=== PATIENT | male | born 1985 | race Hispanic/Latino ===

== ENCOUNTER 2017-07-23 20:41 | Inpatient (IN) | payer MEDICAID, OTHER, SELFPAY ==
[~2017-07-23] VITALS: Ht 167.6 cm; Wt 157.0 kg
[2017-07-23] MEDS ORDERED: SYMB16INH INH (21:01)
[2017-07-23] MEDS ORDERED: ALBU17IN INH (21:01)
[2017-07-23] MEDS ORDERED: NS 1,000 ML IV ONE (21:15)
[2017-07-23 21:17] LABS: BASO # 0.1 10^3/uL (0.0-0.2); BASO % 0.6 % (0.0-1.0); EOS # 0.2 10^3/uL (0.0-0.50); EOS % 2.2 % (0.0-3.0); IMMATURE GRANULOCYTE % 0.1 % (0-0); LYMPH # 2.9 10^3/uL (1.5-4.5); LYMPH % 34.1 % (24.0-44.0); MEAN CORPUSCULAR HEMOGLOBIN 28.8 pg (27.0-33.0); MEAN CORPUSCULAR VOLUME 82.4 fl (80.0-96.0); MONO # 0.6 10^3/uL (0.0-0.8); MONO % 7.2 % (0.0-5.0); NEUTROPHILS # 4.8 10^3/uL (1.8-7.7); NEUTROPHILS % 55.8 % (36.0-66.0); PLATELET COUNT, AUTOMATED 383 10^3/uL (150-450); RED CELL DISTRIBUTION WIDTH 13.2 % (11.5-14.5); WHITE BLOOD COUNT 8.6 10^3/uL (4.0-10.0)
[2017-07-23 21:37] LABS: OSMOLALITY SERUM 305 MOSM/KG (275-295)
[2017-07-23 21:39] LABS: ALBUMIN 3.7 GM/DL (3.2-5.2); ALBUMIN/GLOBULIN RATIO 1.03 (1.00-1.93); ALKALINE PHOSPHATASE 73 U/L (45-117); ALT/SGPT 91 U/L (12-78); ANION GAP 9 MEQ/L (8-16); AST/SGOT 27 U/L (15-37); BILIRUBIN,DIRECT < 0.1 MG/DL (0.0-0.2); BILIRUBIN,TOTAL 0.2 MG/DL (0.2-1.0); BLOOD UREA NITROGEN 23 MG/DL (7-18); CALCIUM LEVEL 8.5 MG/DL (8.5-10.1); CARBON DIOXIDE LEVEL 23 MEQ/L (21-32); CHLORIDE LEVEL 108 MEQ/L (98-107); CREATININE FOR GFR 0.88 MG/DL (0.70-1.30); GLOMERULAR FILTRATION RATE > 60.0 (>60); GLUCOSE, FASTING 130 MG/DL (70-105); SODIUM LEVEL 140 MEQ/L (136-145); TOTAL PROTEIN 7.3 GM/DL (6.4-8.2)
[2017-07-23 21:47] LABS: ERYTHROCYTE SEDIMENTATION RATE 10 mm/hr (0-15)
[2017-07-23 21:52] LABS: METHADONE URINE NEGATIVE (NEGATIVE)
[2017-07-23] MEDS ORDERED: D5W IV ONE ×2 (22:00→23:00)
[2017-07-23] MEDS ORDERED: ACETYLCYSTEINE IV ONE ×2 (22:00→23:00)
[2017-07-23] MEDS ORDERED: NS 1,000 ML IV SCH (22:30)
[2017-07-23 22:32] LABS: VENOUS BASE EXCESS -0.5 (-2.0-2.0); VENOUS O2 SATURATION 69.5 % (60.0-80.0); VENOUS PARTIAL PRESSURE O2 37.3 mmHg (30.0-50.0); VENOUS STANDARD HCO3 23.4 MEQ/L; VENOUS TOTAL CO2 27.1 MEQ/L (24.0-28.0)
[2017-07-23 22:34] LABS: T UPTAKE 41 % (33-40); THYROXINE (T4) 15.5 UG/DL (4.5-12.0)
[2017-07-23 22:44] LABS: INR 0.98
[2017-07-23] MEDS ORDERED: ONDANSETRON 4MG/2ML VIAL (J2405) IV ONE (23:45)
[2017-07-24 02:17] LABS: ALBUMIN 3.1 GM/DL (3.2-5.2); ALBUMIN/GLOBULIN RATIO 0.86 (1.00-1.93); ALKALINE PHOSPHATASE 58 U/L (45-117); ALT/SGPT 72 U/L (12-78); AST/SGOT 19 U/L (15-37); BILIRUBIN,DIRECT < 0.1 MG/DL (0.0-0.2); BILIRUBIN,TOTAL 0.3 MG/DL (0.2-1.0); TOTAL PROTEIN 6.7 GM/DL (6.4-8.2)
--- NOTE | 2017-07-24 02:21 | HPEPDOC ---
General Date of Admission 07-23-17 Primary Care Physician: ADITI MUÑOZ MD Chief Complaint The patient is a 32-year-old male admitted with a reason for visit of Ibuprofen Od. Source: Patient Exam Limitations: No limitations Timing/Duration: 4-6 hours Severity: Moderate Associated Symptoms: Weakness History of Present Illness 32 y/o male with past medical history of asthma presents to ED after taking too many tylenol pills. Pt states that he has had a persistent tooth ache on the right side with radiation down the back of his neck and up the right side of his face for many months, the pain is intermittent but apparently today in the afternoon around 1 pm it became very severe and the pt states he just "kept taking more tylenol to dull the pain". He states that about 4-5 hours later he had ingested at least one bottle full of tylenol according to pt. he was in the shower and noticed that his mouth felt strange and when he tried to speak his words were slurred, he noted headache and some blurring vision and a rapid heart rate with associated SOB and nausea. The pt. then got in his car and dove to his MIL's home who suggested to come to the ED. The pt states he was in good health before today, denied any issues with urination or defecation nor fever, chills or muscle aches. His only medical condition is asthma which is controlled with hand held inhalers. He does admit that him and his are and he did get fired from his job recently but states he did not take the pills to kill himself nor does he have a plans or a means to do so (no guns in the home), he denies wanting to harm anyone else and stated "I only took the pills because the pain was so bad,thats all". He did state that his dentist wants him to have a root canal but that because of insurance reasons he cannot get this done yet. Denies ever having an overdose of medicine in the past. He states that he currently feels well. Home Medications Scheduled Budesonide/Formoterol (Symbicort 160-4.5 Mcg/Act) 60 Puff/Inhaler Aers, 2 PUFF INH BID, (Reported) Scheduled PRN Albuterol Sulfate (Ventolin Hfa) 200 Puff/8 Gm Aers, 2 PUFF INH Q4HP PRN for SHORTNESS OF BREATH, (Reported) Allergies Coded Allergies: No Known Allergies (Unverified , 07/23/17) Past Medical History Medical History asthma Surgical History vasectomy Family History Significant Family History: No pertinent family hx Social History * Smoker: Denies Alcohol: rarely Drugs: denies lives at home by himself Review of Symptoms Constitutional: Reports: Malaise, Denies: Chills, Fever, Night Sweats, Weakness, Fatigue Eyes: Reports: Vision change, Denies: Pain, Conjunctivae inflammation ENT: Reports: Head Aches, Denies: Ear Pain Skin: Denies: Rash, Lesions, Jaundice, Bruising Pulmonary: Reports: Dyspnea, Denies: Cough, Pleuritic Chest Pain Cardiovascular: Reports: Palpitations, Denies: Chest Pain, Orthopnea, Edema, Lt Headedness Gastrointestinal: Reports: Nausea, Denies: Vomiting, Abdominal Pain, Diarrhea, Constipation, Melena, Hematochezia Genitourinary: Denies: Dysuria Musculoskeletal: Denies: Neck Pain Neurological: Denies: Weakness Psych: Reports: Mood Normal Physical Examination General Exam: Positive: Alert, Cooperative, No Acute Distress Eye Exam: Positive: PERRLA, Conjunctiva & lids normal, EOMI, Negative: Sclera icteric, Ptosis ENT Exam: Positive: Atraumatic, Mucous membr. moist/pink, Pharynx Normal Neck Exam: Positive: Supple, Negative: JVD, thyromegaly Chest Exam: Positive: Clear to auscultation, Normal air movement, Negative: Rales, Rhonchi, Wheezing, Diminished Heart Exam: Positive: Rate Normal, Normal S1, Normal S2, Negative: Tachycardic, Bradycardic, Murmurs, Rubs Telemetry: Positive: No significant arrhythmia Abdomen Exam: Positive: Normal bowel sounds, Soft, Negative: Tenderness, Hepatospenomegaly Extremity Exam: Positive: Normal pulses, Negative: Clubbing, Cyanosis, Edema, Tenderness, Swelling Skin Exam: Negative: Rash, Breakdown Neuro Exam: Positive: Normal Speech, Sensation Intact Psych Exam: Positive: Mental status NL, Oriented x 3 Vital Signs Vital Signs Date Time Temp Pulse Resp B/P (MAP) Pulse Ox O2 Delivery O2 Flow Rate FiO2 07/23/17 21:15 07/23/17 21:15 Room Air 07/23/17 21:02 99.1 95 18 99 Laboratory Data Labs 24H Laboratory Tests 2 07/23/17 20:56: Immature Granulocyte % (Auto) 0.1H, White Blood Count 8.6, Red Blood Count 5.27 , Hemoglobin 15.2, Hematocrit 43.4, Mean Corpuscular Volume 82.4, Mean Corpuscular Hemoglobin 28.8, Mean Corpuscular Hemoglobin Concent 35.0, Red Cell Distribution Width 13.2, Platelet Count 383, Neutrophils (%) (Auto) 55.8, Lymphocytes (%) (Auto) 34.1, Monocytes (%) (Auto) 7.2H, Eosinophils (%) (Auto) 2.2, Basophils (%) (Auto) 0.6, Neutrophils # (Auto) 4.8, Lymphocytes # (Auto) 2.9, Monocytes # (Auto) 0.6, Eosinophils # (Auto) 0.2, Basophils # (Auto) 0.1, Immature Granulocyte # (Auto) 0.0, Nucleated Red Blood Cells % (auto) 0.0, Erythrocyte Sedimentation Rate 10, Anion Gap 9, Glomerular Filtration Rate > 60.0, Osmolality 305H, Calcium Level 8.5, Aspartate Amino Transf (AST/SGOT) 27, Alanine Aminotransferase (ALT/SGPT) 91H, Alkaline Phosphatase 73, Total Bilirubin 0.2, Direct Bilirubin < 0.1, Total Creatine Kinase 112, C-Reactive Protein, Quantitative < 0.30, Total Protein 7.3, Albumin 3.7, Albumin/Globulin Ratio 1.03, Thyroid Stimulating Hormone (TSH) < 0.005L, Free Thyroxine Index 6.4H, Thyroxine (T4) 15.5H, Triiodothyronine (T3) Uptake 41H, Salicylates Level < 1.7L, Acetaminophen Level 42.3H, Ethyl Alcohol Level < 0.003 07/23/17 21:28: Urine Appearance CLEAR, Urine Color YELLOW, Urine pH 6.0, Urine Specific [place] 1.039, Urine Protein NEGATIVE, Urine Glucose (UA) NEGATIVE, Urine Ketones TRACEH, Urine Urobilinogen 2.0H, Urine Bilirubin NEGATIVE, Urine Leukocyte Esterase NEGATIVE, Urine Blood NEGATIVE, Urine Nitrite NEGATIVE, Urine WBC (Auto) 2, Urine RBC (Auto) 4H, Urine Hyaline Casts (Auto) 0, Urine Bacteria (Auto) NEGATIVE, Urine Squamous Epithelial Cells 0, Urine Mucus (Auto) SMALL, Urine Sperm (Auto) , Urine Amphetamines Screen NEGATIVE, Urine Benzodiazepines Screen NEGATIVE, Urine Opiates Screen NEGATIVE, Urine Methadone Screen NEGATIVE, Urine Barbiturates Screen NEGATIVE, Urine Phencyclidine Screen NEGATIVE, Urine Cocaine Metabolite Screen NEGATIVE, Urine Cannabinoids Screen NEGATIVE 07/23/17 22:21: Prothrombin Time 13.0, Prothromb Time International Ratio 0.98, Activated Partial Thromboplast Time 26.4L, Blood Gas Bicarbonate Standard 23.4, Venous Blood pH 7.346, Venous Blood Partial Pressure CO2 48.0, Venous Blood Partial Pressure O2 37.3, Venous Blood Total Carbon Dioxide 27.1, Venous Blood HCO3 25.7 , Venous Blood Oxygen Saturation 69.5, Venous Blood Base Excess -0.5, Lactic Acid Level 1.5 CBC/BMP Laboratory Tests 07/23/17 20:56 Red Blood Count 5.27, Mean Corpuscular Volume 82.4, Mean Corpuscular Hemoglobin 28.8, Mean Corpuscular Hemoglobin Concent 35.0, Red Cell Distribution Width 13.2 , Neutrophils (%) (Auto) 55.8, Lymphocytes (%) (Auto) 34.1, Monocytes (%) (Auto ) 7.2 H, Eosinophils (%) (Auto) 2.2, Basophils (%) (Auto) 0.6, Neutrophils # ( Auto) 4.8, Lymphocytes # (Auto) 2.9, Monocytes # (Auto) 0.6, Eosinophils # (Auto ) 0.2, Basophils # (Auto) 0.1 Problems (1) Overdose by acetaminophen Status: Acute Response to Treatment: Stable Problem Text: Pt. continue to receive n-acetyl cysteine as per protocol will be made NPO-will give fluids will be transferred to ICU suicide precautions continued psych. consult in AM, pt will need to be medically cleared before transfer to psych. services (2) Asthma Status: Acute Response to Treatment: Stable Problem Text: c/w home meds (3) Hyperthyroidism Response to Treatment: Stable Problem Text: pt would benefit from outpt f/u by endocrinology pt is not sx., is not tachycardic will continue to monitor (4) DVT prophylaxis Status: Acute Response to Treatment: Stable Problem Text: scd teds Plan / VTE VTE Prophylaxis Ordered?: Yes GME ATTESTATION GME ATTESTATION My preceptor for this patient encounter was physically present in the building during the encounter and was fully available. As needed, all aspects of the patient interview, examination, medical decision making process, and medical care plan development were reviewed and approved by the preceptor. Preceptor is aware and concurs with the plan as stated in the body of this note and will attest to such by his/her cosignature. CESAR LEGGETT DO Jul 24, 2017 00:56
[2017-07-24] MEDS: NS 1,000 ML IV SCH ×2 (02:45→13:50)
[2017-07-24] MEDS ORDERED: ALBUTEROL 90 MCG/ACT 8GM HFA INHALER INH PRN (02:45)
[2017-07-24] MEDS ORDERED: D5W IV ONE (03:00)
[2017-07-24] MEDS ORDERED: ACETYLCYSTEINE IV ONE (03:00)
[2017-07-24 04:00] VITALS: BP 142/68
[2017-07-24 04:59] LABS: BASO % 0.3 % (0.0-1.0); EOS % 0.4 % (0.0-3.0); IMMATURE GRANULOCYTE % 0.1 % (0-0); LYMPH # 2.5 10^3/uL (1.5-4.5); LYMPH % 25.6 % (24.0-44.0); MEAN CORPUSCULAR HEMOGLOBIN 28.7 pg (27.0-33.0); MEAN CORPUSCULAR HGB CONC 34.4 g/dl (32.0-36.5); MEAN CORPUSCULAR VOLUME 83.4 fl (80.0-96.0); MONO # 0.8 10^3/uL (0.0-0.8); MONO % 8.2 % (0.0-5.0); NEUTROPHILS # 6.4 10^3/uL (1.8-7.7); NEUTROPHILS % 65.4 % (36.0-66.0); PLATELET COUNT, AUTOMATED 329 10^3/uL (150-450); RED CELL DISTRIBUTION WIDTH 13.2 % (11.5-14.5); WHITE BLOOD COUNT 9.8 10^3/uL (4.0-10.0)
[2017-07-24 05:06] LABS: ANION GAP 8 MEQ/L (8-16); BLOOD UREA NITROGEN 19 MG/DL (7-18); CALCIUM LEVEL 8.7 MG/DL (8.5-10.1); CARBON DIOXIDE LEVEL 26 MEQ/L (21-32); CHLORIDE LEVEL 107 MEQ/L (98-107); CREATININE FOR GFR 0.74 MG/DL (0.70-1.30); GLOMERULAR FILTRATION RATE > 60.0 (>60); GLUCOSE, FASTING 122 MG/DL (70-105); POTASSIUM SERUM 3.7 MEQ/L (3.5-5.1); SODIUM LEVEL 141 MEQ/L (136-145)
[2017-07-24 07:00] VITALS: BP 141/65
[2017-07-24 08:00] VITALS: BP 141/71
[2017-07-24] MEDS ORDERED: SYMBICORT 160/4.5MCG INHALER 6GM INH SCH (09:00)
--- NOTE | 2017-07-24 11:42 | REP ---
REASON: Drug overdose. FINDINGS: The technique utilized in obtaining the radiograph has magnified the cardiac silhouette and accentuated the interstitial markings. The superior mediastinal structures are midline. The cardiac silhouette is unremarkable in size, shape, and position. The diaphragmatic surfaces of the lungs are regular, and the costophrenic angles are clear. The pulmonary pryor are clear. The imaged osseous structures are intact. IMPRESSION: There is no acute cardiopulmonary disease. Signed by Mendoza Minaya DO 07/24/2017 10:43 A
[2017-07-24 12:06] VITALS: BP 153/69
--- NOTE | 2017-07-24 12:43 | ECGEPIP ---
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
--- NOTE | 2017-07-24 13:41 | MHCRPDOC ---
[facility] Consultation Consultation DATE OF CONSULTATION: 07/24/17 CONSULTATION REQUESTED BY: TESSY GERARD REASON FOR CONSULTATION: . suspected suicidal attempt by overdose on acetaminophen/ibuprofen RELEVANT HISTORY: . Patient is a 32 years old male without known previous psychiatric history that was admitted after having an overdose of acetaminophen/ibuprofen. Patient has been with worsening toothache and gun pain for several weeks and unable to get a root canal/dental treatment as his insurance has not approved. Patient does not know how many pills took last night but was taking the pills constantly over several hours as his pain was not improving. Denied alcohol or any other drug use. Denied any symptoms of depression, anxiety, roxane/psychosis. He is currently living in his owned house by himself as his him about two months ago and moved two hours away. The communicate every day and they will go to couples therapy. They have two girls- ages 2,1. He was fired from his job in [employer] last week - but currently is considering two job offers and has savings in order to support himself until he gets a job. Denied history of any mental health treatments, no history of depression, no history of self harm behaviors Collateral from brother in law/sister's that are very close to him and he reported no previous statements of self harm behaviors, does not think he will be able to hurt himself. Patient has very good support system including 5 sisters, brother in law- Shalom and mother in law whom he speaks every day. His family is in [facility]. PAST PSYCHIATRIC HISTORY: none PAST MEDICAL HISTORY: none, however has recently dental/tooth ache FAMILY HISTORY: No history of mental illness in the family, no history of suicide PERSONAL AND SOCIAL HISTORY: Born and raised in [facility]. 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 SUBSTANCE ABUSE HISTORY: Denied LEGAL HISTORY: . none MENTAL STATUS EXAMINATION: Patient is a 32 years old male , looks stated age, fair grooming and hygiene Speech is fluent, coherent in Urdu Language skills are normal Thought processes including: linear, coherent, goal directed Thought content: no suicidal or homicidal ideas, no delusions elicited, no perceptual disturbances Abstract reasoning, and computation: intact Description of associations: none Description of abnormal or psychotic thoughts: no psychosis Judgment: fair Insight: good Orientation to oriented x 3 Recent and remote memory: intact Attention span and concentration: adequate Fund of knowledge: above average Mood: "ok" Affect: full range DIAGNOSIS: 1. No axis I diagnosis, r/o adjustment disorder PLAN: 1. .There is no evidence that patient had intentions of self harm , patient continues to insist that he will never tried to hurt himself. Possible risk factors are current marital separation, however he has good communication with and is in the process of re-establish the relationship Patient has good support system; gave reasons not to hurt himself: his family and his two daughters . He is aware and recommended individual and couples therapy 2. No acute psychiatric intervention needed, no need for inpatient admission . No need for 1:1 observation Patient should be discharged with relative when medically cleared Social work intervention /outpatient psychotherapy follow up Reconsult if needed Vital Signs Vital Signs Date Time Temp Pulse Resp B/P (MAP) Pulse Ox O2 Delivery O2 Flow Rate FiO2 07/24/17 08:00 99.5 76 23 141/71 (94) 97 Room Air Laboratory Data 24H Labs Laboratory Tests 2 07/23/17 20:56: Immature Granulocyte % (Auto) 0.1H, White Blood Count 8.6, Red Blood Count 5.27 , Hemoglobin 15.2, Hematocrit 43.4, Mean Corpuscular Volume 82.4, Mean Corpuscular Hemoglobin 28.8, Mean Corpuscular Hemoglobin Concent 35.0, Red Cell Distribution Width 13.2, Platelet Count 383, Neutrophils (%) (Auto) 55.8, Lymphocytes (%) (Auto) 34.1, Monocytes (%) (Auto) 7.2H, Eosinophils (%) (Auto) 2.2, Basophils (%) (Auto) 0.6, Neutrophils # (Auto) 4.8, Lymphocytes # (Auto) 2.9, Monocytes # (Auto) 0.6, Eosinophils # (Auto) 0.2, Basophils # (Auto) 0.1, Immature Granulocyte # (Auto) 0.0, Nucleated Red Blood Cells % (auto) 0.0, Erythrocyte Sedimentation Rate 10, Anion Gap 9, Glomerular Filtration Rate > 60.0, Osmolality 305H, Calcium Level 8.5, Aspartate Amino Transf (AST/SGOT) 27, Alanine Aminotransferase (ALT/SGPT) 91H, Alkaline Phosphatase 73, Total Bilirubin 0.2, Direct Bilirubin < 0.1, Total Creatine Kinase 112, C-Reactive Protein, Quantitative < 0.30, Total Protein 7.3, Albumin 3.7, Albumin/Globulin Ratio 1.03, Thyroid Stimulating Hormone (TSH) < 0.005L, Free Thyroxine Index 6.4H, Thyroxine (T4) 15.5H, Triiodothyronine (T3) Uptake 41H, Salicylates Level < 1.7L, Acetaminophen Level 42.3H, Ethyl Alcohol Level < 0.003 07/23/17 21:28: Urine Appearance CLEAR, Urine Color YELLOW, Urine pH 6.0, Urine Specific [place] 1.039, Urine Protein NEGATIVE, Urine Glucose (UA) NEGATIVE, Urine Ketones TRACEH, Urine Urobilinogen 2.0H, Urine Bilirubin NEGATIVE, Urine Leukocyte Esterase NEGATIVE, Urine Blood NEGATIVE, Urine Nitrite NEGATIVE, Urine WBC (Auto) 2, Urine RBC (Auto) 4H, Urine Hyaline Casts (Auto) 0, Urine Bacteria (Auto) NEGATIVE, Urine Squamous Epithelial Cells 0, Urine Mucus (Auto) SMALL, Urine Sperm (Auto) , Urine Amphetamines Screen NEGATIVE, Urine Benzodiazepines Screen NEGATIVE, Urine Opiates Screen NEGATIVE, Urine Methadone Screen NEGATIVE, Urine Barbiturates Screen NEGATIVE, Urine Phencyclidine Screen NEGATIVE, Urine Cocaine Metabolite Screen NEGATIVE, Urine Cannabinoids Screen NEGATIVE 07/23/17 22:21: Prothrombin Time 13.0, Prothromb Time International Ratio 0.98, Activated Partial Thromboplast Time 26.4L, Blood Gas Bicarbonate Standard 23.4, Venous Blood pH 7.346, Venous Blood Partial Pressure CO2 48.0, Venous Blood Partial Pressure O2 37.3, Venous Blood Total Carbon Dioxide 27.1, Venous Blood HCO3 25.7 , Venous Blood Oxygen Saturation 69.5, Venous Blood Base Excess -0.5, Lactic Acid Level 1.5 07/24/17 01:43: Aspartate Amino Transf (AST/SGOT) 19, Alanine Aminotransferase (ALT/SGPT) 72, Alkaline Phosphatase 58, Total Bilirubin 0.3, Direct Bilirubin < 0.1, Total Protein 6.7, Albumin 3.1L, Albumin/Globulin Ratio 0.86L, Acetaminophen Level 12.6 07/24/17 04:29: Immature Granulocyte % (Auto) 0.1H, White Blood Count 9.8, Red Blood Count 4.64 , Hemoglobin 13.3L, Hematocrit 38.7L, Mean Corpuscular Volume 83.4, Mean Corpuscular Hemoglobin 28.7, Mean Corpuscular Hemoglobin Concent 34.4, Red Cell Distribution Width 13.2, Platelet Count 329, Neutrophils (%) (Auto) 65.4, Lymphocytes (%) (Auto) 25.6, Monocytes (%) (Auto) 8.2H, Eosinophils (%) (Auto) 0.4, Basophils (%) (Auto) 0.3, Neutrophils # (Auto) 6.4, Lymphocytes # (Auto) 2.5, Monocytes # (Auto) 0.8, Eosinophils # (Auto) 0.0, Basophils # (Auto) 0.0, Immature Granulocyte # (Auto) 0.0, Nucleated Red Blood Cells % (auto) 0.0, Anion Gap 8, Glomerular Filtration Rate > 60.0, Blood Urea Nitrogen 19H, Creatinine 0.74, Sodium Level 141, Potassium Level 3.7, Chloride Level 107, Carbon Dioxide Level 26, Calcium Level 8.7 Home Medications Current Medications Current Medications Albuterol Sulfate (Proventil, Ventolin Hfa) 2 puff Q4HP PRN INH SHORTNESS OF BREATH; Start 07/24/17 at 02:45; Stop 08/23/17 at 02:44 Budesonide/ Formoterol Fumarate (Symbicort 160/ 4.5mcg) 2 puff BID INH Last administered on 07/24/17 07:31; Start 07/24/17 at 09:00; Stop 08/23/17 at 08:59 Home Med (Med Rec Complete!) ASDIRECTED XX ; Start 07/23/17 at 22:45; Stop 07/23/17 at 22:45; Status DC Sodium Chloride 1,000 ml @ 100 mls/hr Q10H IV Last administered on 07/24/17 02:45; Start 07/24/17 at 02:45; Stop 08/23/17 at 02:44 Sodium Chloride 1,000 ml @ 150 mls/hr Q6H40M IV Last administered on 22:46; Start 07/23/17 at 22:30; Stop 07/24/17 at 03:58; Status DC Scheduled Budesonide/Formoterol (Symbicort 160-4.5 Mcg/Act) 60 Puff/Inhaler Aers, 2 PUFF INH BID, (Reported) Scheduled PRN Albuterol Sulfate (Ventolin Hfa) 200 Puff/8 Gm Aers, 2 PUFF INH Q4HP PRN for SHORTNESS OF BREATH, (Reported) Allergies Coded Allergies: No Known Allergies (Unverified , 07/23/17) NIKO MCCLAIN MD Jul 24, 2017 13:41
[2017-07-24 17:34] VITALS: BP 159/84
[2017-07-24 18:32] LABS: INR 1.01
[2017-07-24 18:46] LABS: ALBUMIN 3.1 GM/DL (3.2-5.2); ALBUMIN/GLOBULIN RATIO 0.94 (1.00-1.93); ALKALINE PHOSPHATASE 61 U/L (45-117); ALT/SGPT 72 U/L (12-78); AST/SGOT 20 U/L (15-37); BILIRUBIN,DIRECT < 0.1 MG/DL (0.0-0.2); BILIRUBIN,TOTAL 0.2 MG/DL (0.2-1.0); TOTAL PROTEIN 6.4 GM/DL (6.4-8.2)
[2017-07-24 20:03] VITALS: BP 129/65
--- NOTE | 2017-07-25 15:51 | DS.PDOC ---
Discharge Summary General Date of Admission Jul 24, 2017 at 01:57 Date of Discharge 07/24/17 Specialist/Consultants Involve: NIKO MCCLAIN MD Discharge Summary PROCEDURES PERFORMED DURING STAY: None. ADMITTING/DISCHARGE DIAGNOSES: 1. . Tylenol overdose COMPLICATIONS/CHIEF COMPLAINT: Overdose By Acetminophen. HISTORY OF PRESENT ILLNESS: . 32 Y/O M with PMH significant for Asthma presented to the ER after concern for taking too many tylenol pills. Apparently the patient stated that he was having a persistent toothache on the right side of his face which radiated down to the back of his neck which he has been dealing with for months. However, the patient was not able to seek medical assistance for this due to the lack of insurance. He subsequently states that he took nearly a bottle full of Tylenol to treat his pain. The patient then noticed that he had some numbness/tingling of his lips, and some blurring of vision with associated nausea. The patient subsequently visited his [facility]lg[facility]'s home, who suggested that he come to the ER for further evaluation. In the ER, the patient denied any suicidal or homicidal ideations, and notes that he took the Tylenol to treat his pain only. However, according to the history obtained in the ER there was some concern that the patient was recently from his , and did lose his job. The patient's Tylenol level was noted to be 42.3 During hospitalization, the patient was treated with 3 doses of acetylcysteine as per the overdose protocol. The patient's INR was noted to be within normal limits. The patient's ALT was only mildly elevated at 91. Follow-up liver function tests were noted to be within normal limits. At this time, the patient states that he is feeling much better, and denies any acute complaints. The patient's follow-up liver function tests, Tylenol level, and INR level were noted to be within normal limits, and he has been medically cleared by poison control. In addition, the patient was also seen by psychiatry who has indicated that the patient does not meet any criteria for inpatient mental health unit. At this time, the patient will be discharged home with recommendation to follow- up with his primary care physician within 3-7 days. He has also been consulted to return to the ER for any acute emergencies. DISCHARGE MEDICATIONS: Please see below. ALLERGIES: Please see below. PHYSICAL EXAMINATION ON DISCHARGE: VITAL SIGNS: Please see below. GENERAL: Awake, alert, oriented 4 HEENT: Normocephalic, atraumatic NECK: No JVD CARDIOVASCULAR EXAMINATION: Normal rate, normal S1, S2 RESPIRATORY EXAMINATION: Clear to auscultation bilaterally ABDOMINAL EXAMINATION: Soft, nontender, nondistended EXTREMITIES: No erythema or tenderness LABORATORY DATA: Please see below. IMAGING: FINDINGS: The technique utilized in obtaining the radiograph has magnified the cardiac silhouette and accentuated the interstitial markings. The superior mediastinal structures are midline. The cardiac silhouette is unremarkable in size, shape, and position. The diaphragmatic surfaces of the lungs are regular, and the costophrenic angles are clear. The pulmonary pryor are clear. The imaged osseous structures are intact. IMPRESSION: There is no acute cardiopulmonary disease. PROGNOSIS: Fair ACTIVITY: As tolerated. DIET: . Regular diet DISCHARGE PLAN: DISPOSITION: Home, Self-Care. DISCHARGE INSTRUCTIONS: 1. . Follow-up with primary care physician within 7 days 2. . Follow-up with outpatient [facility] 3. . Return to the ER for any acute emergencies DISCHARGE CONDITION: Stable. TIME SPENT ON DISCHARGE: Greater than 30 minutes. Vital Signs/I&Os Vital Signs Date Time Temp Pulse Resp B/P (MAP) Pulse Ox O2 Delivery O2 Flow Rate FiO2 07/24/17 20:03 99.0 99 20 129/65 (86) 98 Room Air Laboratory Data Labs 24H Laboratory Tests 2 07/24/17 17:56: Prothrombin Time 13.4, Prothromb Time International Ratio 1.01, Aspartate Amino Transf (AST/SGOT) 20, Alanine Aminotransferase (ALT/SGPT) 72, Alkaline Phosphatase 61, Total Bilirubin 0.2, Direct Bilirubin < 0.1, Total Protein 6.4, Albumin 3.1L, Albumin/Globulin Ratio 0.94L, Acetaminophen Level < 2.0L Discharge Medications Scheduled Budesonide/Formoterol (Symbicort 160-4.5 Mcg/Act) 60 Puff/Inhaler Aers, 2 PUFF INH BID, (Reported) Scheduled PRN Albuterol Sulfate (Ventolin Hfa) 200 Puff/8 Gm Aers, 2 PUFF INH Q4HP PRN for SHORTNESS OF BREATH, (Reported) Allergies Coded Allergies: No Known Allergies (Unverified , 07/23/17) ROCHELLE LEMUS MD Jul 25, 2017 15:51
== END 2017-07-24 20:32 | disposition home or self-care (01) | DRG 812 ==
LOC: EDBD 20:41 → M ED 20:41 → M ED INP 07-24 01:57 → M ICU 07-24 03:44
PROVIDERS: ADMIT Internal Medicine; ATTEND Internal Medicine
DX: T39.1X1A Poisoning by 4-Aminophenol derivatives, accidental (unintentional), initial encounter (principal); J45.909 Unspecified asthma, uncomplicated; Z79.899 Other long term (current) drug therapy; Z98.52 Vasectomy status